=== PATIENT | male | born 1945 | race Caucasian/White ===

== ENCOUNTER 2018-01-18 01:16 | Emergency (ER) | payer OTHER ==
[2018-01-18] MEDS: SOD CHLORIDE 0.9% 500 ML IV (01:41)
[2018-01-18] MEDS: DILTIAZEM 50 MG INJ IV (01:41)
[2018-01-18] MEDS: METHYLPREDNISOLONE 125 MG INJ IV (01:41)
[2018-01-18] MEDS: ALBUTEROL 0.5% (NEB) 2.5 MG/0.5 ML AMP INH (01:50)
[2018-01-18] MEDS: IPRATROPIUM (NEB) 0.5 MG/2.5 ML AMP INH (01:50)
[2018-01-18 02:44] LABS: ADD MAN DIFF? NO
[2018-01-18 02:46] LABS: WHITE BLOOD COUNT 11.5 10^3/ul (4.8-10.8)
[2018-01-18 02:46] LABS: ABNORMAL IP MESSAGE 1; BASOPHIL # 0.1 10^3/ul (0.0-0.1); BASOPHILS % 0.5 % (0.0-2.0); EOSINOPHILS # 0.1 10^3/ul (0.0-0.5); HEMATOCRIT 38.7 % (42.0-52.0); HEMOGLOBIN 12.1 g/dl (14.0-18.0); LYMPHOCYTES # 1.8 10^3/ul (0.8-2.9); LYMPHOCYTES % 15.5 % (15.0-51.0); MEAN CORPUSCULAR HEMOGLOBIN 29.3 pg (29.0-33.0); MEAN CORPUSCULAR HGB CONC 31.3 g/dl (32.0-37.0); MEAN CORPUSCULAR VOLUME 93.7 fl (82.0-101.0); MONOCYTE # 0.8 10^3/ul (0.3-0.9); NEUTROPHIL # 8.7 10^3/ul (1.6-7.5); NEUTROPHILS % 75.7 % (39.0-77.0); PLATELET COUNT 141 10^3/UL (140-415); POSITIVE DIFF @See below; RED BLOOD COUNT 4.13 10^6/ul (4.70-6.10); RED CELL DISTRIBUTION WIDTH 14.1 % (11.5-14.5)
[2018-01-18 02:49] LABS: INR 0.96; PROTIME 12.9 Sec (11.9-14.9)
[2018-01-18 02:50] LABS: PARTIAL THROMBOPLASTIN TIME 26.2 Sec (25.0-35.0)
[2018-01-18 02:52] LABS: MEAN PLATELET VOLUME 14.6 fl (7.4-10.4)
[2018-01-18 03:01] LABS: ALANINE AMINOTRANSFERASE 30 IU/L (13-69); ALBUMIN/GLOBULIN RATIO 1.05; ALKALINE PHOSPHATASE 60 IU/L (42-121); ANION GAP 23 (8-16); ASPARTATE AMINO TRANSFERASE 57 IU/L (15-46); BILIRUBIN,INDIRECT 0.8 mg/dl (0-1.1); BILIRUBIN,TOTAL 0.8 mg/dl (0.2-1.3); BLOOD UREA NITROGEN 22 mg/dl (7-20); CARBON DIOXIDE 23 mmol/L (21-31); CHLORIDE 110 mmol/L (97-110); CREATININE 1.42 mg/dl (0.61-1.24); GLUCOSE 90 mg/dl (70-220); POTASSIUM 4.2 mmol/L (3.5-5.1); SODIUM 152 mmol/L (135-144); TOTAL PROTEIN 7.8 g/dl (6.1-8.1)
[2018-01-18 03:04] LABS: AADO2 Arterial 92.6 mmHg (7.0-24.0); Allen Test ACCEPTAB; Arterial Base Excess -3.1 mmol/L (-3.0-3); Arterial Blood Gas Oxygen Sat 97.4 mmHG (95.0-100.0); Arterial COHb 0.3 % (0.0-3.0); Arterial Fraction of Oxyhgb 96.9 % (93.0-99.0); Arterial HCO3 20.7 mmol/L (22.0-26.0); Arterial MetHb 0.2 % (0.0-1.5); Arterial Total Hemglobin 12.6 g/dl (12.0-18.0); Arterial pCO2 33.2 mmhg (35-45); MODE NASAL CANNULA; Site Left Radial
[2018-01-18] MEDS: FUROSEMIDE 40 MG INJ IV (03:29)
[2018-01-18 03:35] LABS: B-TYPE NATRIURETIC PEPTIDE 7160 PG/ML (0-125)
[2018-01-18] MEDS: LORAZEPAM 2 MG INJ IV (04:23)
[2018-01-18] MEDS: SOD CHLORIDE 0.9% 1,000 ML IV (05:09)
[2018-01-18] MEDS ORDERED: NORepinephrine 8MG/250 ML (PMX 250 ML IV (06:00)
[2018-01-18] MEDS ORDERED: ACETAMINOPHEN 650MG/20.3ML CUP PO (06:00)
[2018-01-18] MEDS ORDERED: NITROGLYCERIN (SL) 0.4 MG TAB SL (06:00)
[2018-01-18] MEDS ORDERED: ALBUTEROL/IPRATROPIUM (NEB) 3 ML AMP NEB (06:00)
[2018-01-18] MEDS ORDERED: EPINEPHrine 0.1 MG/ML SYG (07:00)
[2018-01-18] MEDS: AMIODARONE 900 MG in DEXTROSE 5% 482 ML IV (07:26)
[2018-01-18 07:42] LABS: ADD MAN DIFF? NO
[2018-01-18 07:45] LABS: ABNORMAL IP MESSAGE 1; BASOPHILS % 0.1 % (0.0-2.0); EOSINOPHILS % 0.1 % (0.0-7.0); HEMATOCRIT 34.8 % (42.0-52.0); HEMOGLOBIN 11.1 g/dl (14.0-18.0); LYMPHOCYTES # 0.4 10^3/ul (0.8-2.9); LYMPHOCYTES % 3.5 % (15.0-51.0); MEAN CORPUSCULAR HEMOGLOBIN 29.5 pg (29.0-33.0); MEAN CORPUSCULAR HGB CONC 31.9 g/dl (32.0-37.0); MEAN CORPUSCULAR VOLUME 92.6 fl (82.0-101.0); MEAN PLATELET VOLUME 13.4 fl (7.4-10.4); MONOCYTE # 0.4 10^3/ul (0.3-0.9); MONOCYTES % 3.5 % (0.0-11.0); NEUTROPHIL # 10.6 10^3/ul (1.6-7.5); NEUTROPHILS % 91.7 % (39.0-77.0); PLATELET COUNT 110 10^3/UL (140-415); POSITIVE DIFF @See below; RED BLOOD COUNT 3.76 10^6/ul (4.70-6.10); RED CELL DISTRIBUTION WIDTH 14.2 % (11.5-14.5)
[2018-01-18 07:45] LABS: WHITE BLOOD COUNT 11.6 10^3/ul (4.8-10.8)
[2018-01-18] MEDS: DEXTROSE 5%-0.45% NACL 1,000 ML IV (07:59)
[2018-01-18] MEDS: ONDANSETRON 4 MG INJ IV (07:59)
[2018-01-18] MEDS: METOPROLOL 25 MG TAB PO (08:00)
[2018-01-18 08:03] LABS: CREATINE KINASE 242 IU/L (23-200)
[2018-01-18 08:06] LABS: ANION GAP 25 (8-16); BLOOD UREA NITROGEN 24 mg/dl (7-20); CALCIUM 8.3 mg/dl (8.4-10.2); CARBON DIOXIDE 16 mmol/L (21-31); CHLORIDE 112 mmol/L (97-110); CREATININE 1.86 mg/dl (0.61-1.24); GLUCOSE 236 mg/dl (70-220); POTASSIUM 4.5 mmol/L (3.5-5.1); SODIUM 148 mmol/L (135-144)
[2018-01-18 08:29] LABS: CK INDEX 6.7
[2018-01-18] MEDS: CLOPIDOGREL 75 MG TAB PO (08:37)
[2018-01-18] MEDS: NYSTATIN 15 GM POWDER BTL TOP (09:00)
[2018-01-18] MEDS: PANTOPRAZOLE IV 80 MG in SOD CHLORIDE 0.9% 100 ML IVPB ×2 (09:05→09:34)
[2018-01-18] MEDS: LEVOFLOXACIN 500MG/D5W (PMX) 100 ML IVPB (09:40)
[2018-01-18] MEDS: HEPARIN 1000 UNITS/ML 10 ML INJ IV (10:00)
[2018-01-18] MEDS: NORepinephrine 8MG/250 ML (PMX 250 ML IV (10:35)
[2018-01-18] MEDS: FUROSEMIDE 20 MG INJ IV (11:58)
[2018-01-18] MEDS: morphine 2 MG INJ IV ×2 (12:06→12:11)
[2018-01-18] MEDS ORDERED: ATORVASTATIN 20 MG TAB PO (21:00)
== END 2018-01-18 16:09 | disposition expired ==
LOC: E/R 01:16
DX: I46.9 Cardiac arrest, cause unspecified (principal); I21.4 Non-ST elevation (NSTEMI) myocardial infarction; I48.91 Unspecified atrial fibrillation; E11.9 Type 2 diabetes mellitus without complications; Z87.891 Personal history of nicotine dependence
CPT/HCPCS: 31500; 36415; 36600; 71045; 80048; 80053; 82550; 82553; 82803; 83880; 84484; 85025; 85610; 85730; 86850; 86900; 86901; 92950; 93306; 94002; 94644; 96365; 96366; 96368; 96375; 99291-25